=== PATIENT | male | born 1975 | race Caucasian/White ===

== ENCOUNTER 2023-03-17 08:11 | Day surgery (SDC) | payer OTHER ==
[2023-03-17] VITALS (11 sets, daily range): BP systolic 125–139; BP diastolic 74–98
[~2023-03-17] VITALS: Ht 177.8 cm; Wt 83.0 kg
[~2023-03-17 08:11] MED LIST: CHOL10005 PO; JUICE PLUS; LACT1CAP65 PO; LIDOcaine 1% W/epiNEPHrine 1:100,000 20ml vial ONE; MAGNESIUM GLYCINATE PO; VALA500T41 PO; [UNRECOGNIZED DRUG - OTHER] PO; cocaine 4% topical solution 4ml bottle ONE; famotidine 20mg tablet PO ONE; mupirocin 2% ointment 22GM ONE; oxymetazoline 15 ML nasal spray NS ONE; ringers solution, lacted 1,000 ML IV SCH; tranexamic acid 100mg/ml inj. ONE
[2023-03-17] MEDS ORDERED: epiNEPHrine 1 mg/ml inj ONE (09:39)
[2023-03-17] MEDS ORDERED: mupirocin 2% ointment 22GM ONE (09:39)
[2023-03-17] MEDS ORDERED: methylPREDNISolone acetate 80mg/ml inj**IM only ONE (10:12)
[2023-03-17] MEDS ORDERED: sevoflurane 250ml liquid IH ONE (10:19)
[2023-03-17] MEDS ORDERED: fentaNYL/PF 50MCG/1 ML 2ML syringe ONE (10:25)
[2023-03-17] MEDS ORDERED: midazolam 1 mg/ML 2ml injection ONE (10:25)
[2023-03-17] MEDS ORDERED: LIDOcaine 1% w/EPI 1:100,000 30ml vial (MDV) IJ ONE (10:36)
[2023-03-17] MEDS ORDERED: proCHLORperazine 10 MG/2 ml inj IV PRN (10:55)
[2023-03-17] MEDS ORDERED: ondansetron/PF 4mg/2ml inj IV PRN (10:55)
[2023-03-17] MEDS ORDERED: morphine 4 MG/ML inj SYRINge IV PRN (10:55)
[2023-03-17] MEDS ORDERED: ringers solution, lacted 1,000 ML IV SCH (10:55)
[2023-03-17] MEDS ORDERED: morphine 2 MG/ML inj. syringe IV PRN (10:55)
[2023-03-17] MEDS ORDERED: meperidine/PF 25mg/ml syringe IV PRN ×2 (10:55)
[2023-03-17] MEDS ORDERED: ondansetron/PF 4mg/2ml inj ONE (11:16)
[2023-03-17] MEDS ORDERED: dexamethasone sod phosphate 4mg/ml inj. ONE (11:17)
[2023-03-17] MEDS ORDERED: propofol inj 20 ML IV ONE (11:17)
--- NOTE | 2023-03-17 11:42 | NUR ---
Received from OR via [facility], accompanied by Anesthesiologist DR ALMODOVAR and report given by Anesthesiologist. PT IS GROGGY BUT RESPONDS TO VERBAL COMMANDS AND IS ABLE TO IZQUIERDO. PT PLACED ON BEDSIDE MONITOR. VSS. PT IS IN SR WITH RATE IN LOW 80'S. PT 20G PIV TO RT HAND WITH LR INFUSING ORDERED. PT HAS COTTONOIDS IN BILAT NARES. PT DENIES PAIN, DOES STATE A SLIGHT BURNING SENSATION IN NOSE. WILL CONTINUE TO ASSESS.
[2023-03-17] MEDS: meperidine/PF 25mg/ml syringe IV PRN ×2 (11:49→12:45)
[2023-03-17] MEDS ORDERED: salt irrigation nasal spray 45 ML SPRAY NS PRN (11:50)
--- NOTE | 2023-03-17 13:40 | NUR ---
PATIENT A&OX4, DENIES PAIN, V/S WNL, NEUROVASCULAR CHECKS INTACT, SCD OFF, NASAL COTTONOIDS IN BILATERAL SINUS REMOVED MINIMAL DRAINAGE SEEN, 20G PIV D/C. PT UP AND DRESSED, DISCUSSED HOME CARE FOR NASAL IRRIGATION AND MEDICATIONS, PT USED OCEAN SPRAY AND OINTMENT BEFORE LEAVING, ALL QUESTIONS ANSWERED, FRESH GAUZE PLACE UNDER NOSE, PT TAKEN WITH SUPPLIES AND BELONGINGS TO VEHICLE, TRANSPORTED BY HOME.
== END 2023-03-17 13:36 | disposition home or self-care (01) ==
LOC: PAS 08:11
PROVIDERS: ATTEND Otolaryngology
DX: J34.2 Deviated nasal septum (principal); J34.3 Hypertrophy of nasal turbinates; G47.30 Sleep apnea, unspecified; Z20.822 Contact with and (suspected) exposure to COVID-19; Z98.818 Other dental procedure status; Z79.899 Other long term (current) drug therapy
CPT/HCPCS: 30140; 30520; 82948; 87811; 93005; A6402; J0171; J1100; J2175; J2250; J2405; J2704; J3010; J3490; J7030; J7120; Z7506; Z7508; Z7512; A4618; A6449; A7000; J1040